=== PATIENT | male | born 1970 | race Two or more races ===

== ENCOUNTER 2021-03-09 09:58 | Outpatient (REF) | payer SELFPAY ==
[2021-03-09 10:35] LABS: Binax Internal Control QC Valid; Binax Lot number: 9864; Binax Now Covid-19 Ag Negative (Negative)
== END 2021-03-09 09:59 | disposition home or self-care (01) ==
LOC: HO.LAB 09:58
PROVIDERS: Visit Provider Internal Medicine
DX: Z20.822 Contact with and (suspected) exposure to COVID-19 (principal)
CPT/HCPCS: 36415; C9803